=== PATIENT | female | born 1980 | race Two or more races ===

== ENCOUNTER 2017-10-16 17:37 | Emergency (ER) | payer SELFPAY ==
[~2017-10-16] VITALS: Ht 170.2 cm; Wt 136.4 kg
[2017-10-16 18:48] LABS: HEMATOCRIT 37.9 % (36.0-46.0); HEMOGLOBIN 12.4 G/DL (11.9-15.5); MCHC 32.7 G/DL (30.0-36.0); MCV 97.7 FL (83-99); PLATELET COUNT 262 K/uL (156-360); RBC DIS.WIDTH-CV 13.7 % (11.8-14.6); RBC DIS.WIDTH-SD 49.1 % (39-53); RED BLOOD COUNT 3.88 M/uL (3.80-5.20); WHITE BLOOD COUNT 6.2 K/uL (4.1-10.2)
[2017-10-16 18:55] VITALS: BP 131/77
[2017-10-16 18:58] LABS: ALBUMIN 4.1 g/dL (3.2-4.8); CHLORIDE 106 mEq/L (99-109); POTASSIUM 3.7 mEq/L (3.7-5.4); SODIUM 142 mEq/L (136-147)
[2017-10-16 19:01] LABS: GLUCOSE 81 mg/dL (70-99); TOTAL PROTEIN 7.1 g/dL (6.4-8.3)
[2017-10-16 19:02] LABS: TOTAL BILIRUBIN 0.3 mg/dL (0.0-1.0)
[2017-10-16 19:04] LABS: ALKALINE PHOSPHATASE 73 IU/L (3-129); CREATININE 0.7 mg/dL (0.6-1.3)
[2017-10-16 19:05] LABS: UREA NITROGEN (BUN) 10 mg/dL (9-23)
[2017-10-16 19:06] LABS: AST (GOT) 15 IU/L (2-34)
[2017-10-16 19:07] LABS: ALT (GPT) 14 IU/L (3-49)
[2017-10-16 19:08] LABS: GFR ESTIMATE (CALCULATED) > 59 mL/min/
[2017-10-16 20:33] LABS: ANTI-HIV (AIDS STAT TEST) NONREACTIVE
[2017-10-18 12:08] LABS: HEPATITIS B SURFACE ANTIGEN Nonreactive
[2017-10-18 12:09] LABS: HEPATITIS B SURFACE ANTIBODY Nonreactive; HEPATITIS C ANTIBODY Nonreactive
[2017-10-18 12:10] LABS: ANTI-HEPATITIS B CORE (IGM) Nonreactive
[2017-10-18 12:11] LABS: HIV-1/2 AB/AG COMBO Nonreactive
[2017-10-19 21:47] LABS: HCV RNA (IU/mL) <15 IU/mL (())
[2017-10-20 14:18] LABS: HCV RNA (LOG IU/mL) <1.18 (())
== END 2017-10-16 18:46 ==
LOC: EME 17:37
PROVIDERS: Nurse Practitioner Family
DX: S31.040A Puncture wound with foreign body of lower back and pelvis without penetration into retroperitoneum, initial encounter (principal); S71.142A Puncture wound with foreign body, left thigh, initial encounter; S31.80 Open wound of unspecified buttock; Y35.491A Legal intervention involving other sharp objects, law enforcement official injured, initial encounter; R45.1 Restlessness and agitation; F17.200 Nicotine dependence, unspecified, uncomplicated
CPT/HCPCS: 80053; 85027; 86705; 86706; 86803; 87340; 87389; 87522 90; 99281; 99285